=== PATIENT | male | born 1990 | race Caucasian/White ===

== ENCOUNTER 2023-03-15 01:57 | Emergency (ER) | payer MEDICAID ==
[2023-03-15] MEDS ORDERED: Diazepam 2 MG Tab PO ONE (02:12)
[2023-03-15] MEDS ORDERED: Ketorolac 30 MG/ML SDV IM ONE (02:12)
== END 2023-03-15 02:28 | disposition home or self-care (01) ==
LOC: EDSEX 01:57 → MW.ED 01:57
DX: S46.012A Strain of muscle(s) and tendon(s) of the rotator cuff of left shoulder, initial encounter (principal); Z90.13 Acquired absence of bilateral breasts and nipples; X50.0XXA Overexertion from strenuous movement or load, initial encounter
CPT/HCPCS: 96372; 99283; A9270; J1885